=== PATIENT | male | born 1990 | race Caucasian/White ===

== ENCOUNTER 2022-03-04 03:05 | Emergency (ER) | payer BC, OTHER ==
[2022-03-04 03:54] LABS: ANION GAP 13.3 mmol/L (5-15); CHLORIDE,CL 106 mmol/L (98-107); SODIUM,NA 145 mmol/L (136-145)
[2022-03-04] MEDS: Sodium Chloride 0.9% 1,000 ML IV ONE (04:13)
[2022-03-04 04:29] LABS: BARBITURATE SCREEN,URINE NEGATIVE (NEGATIVE); BENZODIAZEPINES SCREEN,URINE NEGATIVE (NEGATIVE); TCA SCREEN,URINE NEGATIVE (NEGATIVE); THC SCREEN,URINE 50 NG/ML NEGATIVE (NEGATIVE)
[2022-03-04] MEDS: ALTEPLASE IV ONE (05:03)
[2022-03-04 05:28] LABS: PTT,PARTIAL THROMBOPLSTIN TIME 21.7 SEC (22.8-31.4)
[2022-03-04] MEDS: Alteplase 2 MG Vial IVPUSH ONE (05:55)
== END 2022-03-04 05:20 ==
LOC: KA.ED 03:05
DX: R47.01 Aphasia (principal); F10.129 Alcohol abuse with intoxication, unspecified; Z92.82 Status post administration of tPA (rtPA) in a different facility within the last 24 hours prior to admission to current facility; Y90.6 Blood alcohol level of 120-199 mg/100 ml
CPT/HCPCS: 36415; 37195; 70450; 80048; 80305-QW; 80307; 85025; 85610; 85730; 93005; 93010; 99284; 99285-25; J2997; J7030